=== PATIENT | female | born 1935 | race African-American/Black ===

== ENCOUNTER 2017-06-14 16:35 | Inpatient (IN) | payer BC ==
[~2017-06-14] VITALS: Ht 160 cm; Wt 101.6 kg
[~2017-06-14 16:35] MED LIST: ALLO100T PO; ALPR2TAB2 PO; AMLO10TA80 PO; AZOPT OP; BRIM10DR2 OP; BRIN8DRO OP; FURO-152; OMEP20TA15 PO; TRAV2.5D OP; VALS40TA4
[2017-06-14 17:27] LABS: BASOPHILS % 0.6 % (0.0-2.0); EOSINOPHILS % 0.8 % (0.0-5.0); HEMOGLOBIN. 9.1 g/dL (12.0-16.0); LYMPHOCYTES % 17.5 % (20.0-50.0); MEAN CORPUSCULAR HEMOGLOBIN 30.2 pg (28.0-32.0); MEAN CORPUSCULAR VOLUME 96.8 fL (81.0-99.0); MEAN PLATELET VOLUME 9.1 fl (7.4-10.4); MONOCYTES % 8.8 % (2.0-8.0); NEUTROPHILS % 72.3 % (40.0-76.0); PLATELET 153 x1000/uL (130-400); RED CELL DISTRIBUTION WIDTH 15.1 % (11.6-14.6)
[2017-06-14 17:30] LABS: INR 1.2; PROTHROMBIN TIME 12.3 sec
[2017-06-14 17:39] LABS: TROPONIN I 0.03 ng/mL (0.00-0.04)
[2017-06-14] MEDS ORDERED: CEFAZOLIN 1000MG PREMIX 50 ML IV ONE (18:15)
[2017-06-14] MEDS ORDERED: SODIUM POLYSTYRENE SULFONATE 15 G/60 ML BOT PO ONE (18:45)
[2017-06-14] MEDS ORDERED: CALCIUM CHLORIDE 1GM/10ML SYR IV ONE (18:45)
[2017-06-14] MEDS ORDERED: SODIUM CHLORIDE 0.9% 1,000 ML IV ONE (18:45)
[2017-06-14] MEDS ORDERED: DEXTROSE 50% WATER 50ML SYRINGE IV ONE (18:45)
[2017-06-14] MEDS ORDERED: INSULIN REGULAR (HUMULIN R) 300UNITS/3ML IV ONE (18:45)
[2017-06-14] MEDS ORDERED: INSULIN REGULAR (HUMULIN R) UD 100 UNITS/ML SYR IV ONE (19:00)
[2017-06-14 20:33] LABS: *AMPHETAMINES SCREEN URINE NEGATIVE (NEGATIVE); *BARBITURATES SCREEN URINE NEGATIVE (NEGATIVE); *BENZODIAZEPINES SCREEN URINE PRESUMTIVE POSITIVE (NEGATIVE); *COCAINE SCREEN URINE NEGATIVE (NEGATIVE); CANNABINOID URINE SCREEN NEGATIVE (NEGATIVE); METHADONE URINE SCREEN NEGATIVE (NEGATIVE); OPIATES URINE SCREEN NEGATIVE (NEGATIVE); PHENCYCLIDINE URINE SCREEN NEGATIVE (NEGATIVE)
[2017-06-14 22:30] VITALS: BP 192/73
[2017-06-14] MEDS ORDERED: ACETAMINOPHEN 325MG TABLET PO PRN (23:15)
[2017-06-14] MEDS ORDERED: CLONIDINE 0.1MG TABLET PO PRN (23:15)
[2017-06-14] MEDS ORDERED: LORAZEPAM 1MG TABLET PO PRN (23:15)
[2017-06-14] MEDS ORDERED: DOCUSATE SODIUM 100MG CAPSULE PO PRN (23:15)
[2017-06-14] MEDS ORDERED: APIX5TAB PO (23:27)
[2017-06-14] MEDS ORDERED: CARV12.545 PO (23:27)
[2017-06-14] MEDS ORDERED: DEXT 5%/0.45% NACL 500 ML IV NR (23:45)
[2017-06-14] MEDS: PANTOPRAZOLE 40MG DR TABLET PO SCH (23:49)
[2017-06-15] VITALS (8 sets, daily range): BP systolic 93–192; BP diastolic 45–75
[2017-06-15] MEDS: APIXABAN 5 MG TABLET PO SCH ×3 (00:05→18:41)
[2017-06-15] MEDS ORDERED: CHLO25TA27 GT (01:03)
[2017-06-15] MEDS ORDERED: DEXT 5%/0.45% NACL KCL 20MEQ/L 1,000 ML IV SCH (02:00)
[2017-06-15] MEDS: NYSTATIN/TRIAMCIN CREAM 15GM TOP SCH ×4 (02:56→18:42)
[2017-06-15] MEDS: PANTOPRAZOLE 40MG DR TABLET PO SCH ×2 (06:29→22:29)
[2017-06-15 07:36] LABS: BASOPHILS % 0.2 % (0.0-2.0); EOSINOPHILS % 0.9 % (0.0-5.0); HEMOGLOBIN. 9.7 g/dL (12.0-16.0); LYMPHOCYTES % 16.3 % (20.0-50.0); MEAN CORPUSCULAR HEMOGLOBIN 29.4 pg (28.0-32.0); MEAN CORPUSCULAR VOLUME 97.6 fL (81.0-99.0); MEAN PLATELET VOLUME 9.5 fl (7.4-10.4); MONOCYTES % 7.5 % (2.0-8.0); NEUTROPHILS % 75.1 % (40.0-76.0); PLATELET 172 x1000/uL (130-400); RED BLOOD CELL COUNT 3.28 mill/uL (4.2-5.4); RED CELL DISTRIBUTION WIDTH 15.2 % (11.6-14.6)
[2017-06-15] MEDS: CARVEDILOL 12.5MG TABLET PO SCH ×2 (08:54→21:00)
[2017-06-15] MEDS ORDERED: EDARBYCLOR PO SCH (09:00)
[2017-06-15] MEDS ORDERED: CHLORTHALIDONE 25MG TABLET GT SCH (09:00)
[2017-06-15 09:02] LABS: PHOSPHORUS 4.5 mg/dL (2.5-4.9)
[2017-06-15] MEDS ORDERED: SODIUM POLYSTYRENE SULFONATE 15 G/60 ML BOT PO NR (10:15)
[2017-06-15] MEDS: NIFEDIPINE XL 60MG TAB PO SCH (11:29)
[2017-06-15] MEDS: CITRIC ACID/SODIUM CITRATE SOLN 30ML UDC PO SCH ×3 (11:29→18:41)
[2017-06-15] MEDS ORDERED: SODIUM BICARBONATE 150 MEQ in DEXTROSE 5% WATER 1,000 ML IV SCH (12:00)
[2017-06-15 12:20] LABS: BG BASE EXCESS -16.6 mmol/L (-2.0-2.0); BG CARBOXYHEMOGLOBIN 0.1 % (0.5-1.5); BG DEOXYHEMOGLOBIN 6.3 % (0.0-5.0); BG FRACTION INSPIRED OXYGEN 21; BG METHEMOGLOBIN 0.3 % (0.0-1.5); BG OXYGEN SATURATION 93.7 % (92.0-98.5); BG OXYHEMOGLOBIN 93.3 % (94.0-97.0); BG PCO2 32.4 mmHg (35.0-45.0); BG PH 7.149 (7.350-7.450); BG SAMPLE SITE RIGHT BRACHIAL; BG TOTAL HEMOGLOBIN 10.4 g/dL (12.0-18.0); BG VENT MODE ROOM AIR
[2017-06-15 21:51] LABS: HEMATOCRIT 30.8 % (36.0-48.0); HEMOGLOBIN 9.5 g/dL (12.0-16.0); MEAN CORPUSCULAR HEMOGLOBIN 29.5 pg (28.0-32.0); MEAN CORPUSCULAR VOLUME 95.5 fL (81.0-99.0); PLATELET 175 x1000/uL (130-400); RED BLOOD CELL COUNT 3.22 mill/uL (4.2-5.4); RED CELL DISTRIBUTION WIDTH 15.2 % (11.6-14.6)
[2017-06-15] MEDS ORDERED: SODIUM CHLORIDE 0.9% 250 ML IV SCH (22:30)
[2017-06-16 04:00] VITALS: BP 164/78
[2017-06-16 08:00] VITALS: BP 110/55
[2017-06-16] MEDS: PANTOPRAZOLE 40MG DR TABLET PO SCH (08:24)
[2017-06-16] MEDS: NIFEDIPINE XL 60MG TAB PO SCH (08:24)
[2017-06-16] MEDS: APIXABAN 5 MG TABLET PO SCH (08:26)
[2017-06-16] MEDS: CARVEDILOL 12.5MG TABLET PO SCH (08:26)
[2017-06-16] MEDS: CITRIC ACID/SODIUM CITRATE SOLN 30ML UDC PO SCH ×2 (08:27→12:06)
[2017-06-16 08:37] LABS: BASOPHILS % 0.6 % (0.0-2.0); EOSINOPHILS % 1.1 % (0.0-5.0); HEMATOCRIT. 32.3 % (36.0-48.0); HEMOGLOBIN. 10.2 g/dL (12.0-16.0); LYMPHOCYTES % 10.7 % (20.0-50.0); MEAN CORPUSCULAR HEMOGLOBIN 29.9 pg (28.0-32.0); MEAN CORPUSCULAR VOLUME 94.6 fL (81.0-99.0); MONOCYTES % 7.8 % (2.0-8.0); NEUTROPHILS % 79.8 % (40.0-76.0); PLATELET 193 x1000/uL (130-400); RED BLOOD CELL COUNT 3.42 mill/uL (4.2-5.4); RED CELL DISTRIBUTION WIDTH 15.1 % (11.6-14.6)
[2017-06-16 09:14] LABS: CARBON DIOXIDE 17 mEq/L (21-32); CHLORIDE 118 mEq/L (98-107); PHOSPHORUS 3.2 mg/dL (2.5-4.9)
[2017-06-16] MEDS ORDERED: MAGNESIUM 2 G PREMIX 50 ML IV ONE (10:30)
[2017-06-16 12:00] VITALS: BP 100/56
[2017-06-16] MEDS ORDERED: SODIUM BICARBONATE 100 MEQ in DEXTROSE 5% WATER 1,000 ML IV SCH (12:00)
[2017-06-16] MEDS ORDERED: MAGNESIUM 2 G PREMIX 50 ML IV NR (12:00)
== END 2017-06-16 14:50 | disposition short-term general hospital (02) | DRG 683 ==
LOC: ER 17:08 → 8WST 17:55 → EDBEDREQ 20:20 → ENRESERV 20:24 → 8WST 21:57
PROVIDERS: ADMIT Internal Medicine Pulmonary Disease; ATTEND Internal Medicine Pulmonary Disease
DX: N17.9 Acute kidney failure, unspecified (principal); E87.2 Acidosis; M10.9 Gout, unspecified; I12.9 Hypertensive chronic kidney disease with stage 1 through stage 4 chronic kidney disease, or unspecified chronic kidney disease; R21 Rash and other nonspecific skin eruption; D63.1 Anemia in chronic kidney disease; N18.2 Chronic kidney disease, stage 2 (mild); E87.5 Hyperkalemia; E83.42 Hypomagnesemia; I48.91 Unspecified atrial fibrillation; I95.9 Hypotension, unspecified; W19.XXXA Unspecified fall, initial encounter; Y92.009 Unspecified place in unspecified non-institutional (private) residence as the place of occurrence of the external cause; Z86.718 Personal history of other venous thrombosis and embolism; Z85.038 Personal history of other malignant neoplasm of large intestine; Z82.49 Family history of ischemic heart disease and other diseases of the circulatory system; Z90.49 Acquired absence of other specified parts of digestive tract
CPT/HCPCS: 36415; 36600; 70450; 71010; 80048; 80053; 80305; 82375; 82805; 82962; 83735; 83880; 84100; 84484; 85025; 85027; 85610; 93005; 96361; 96365; 96375; 99285; C1893; J0690; J1815; J3475; J3490; J7030; J7050; J7070

== ENCOUNTER 2019-05-30 13:24 | Inpatient (IN) | payer BC ==
[2019-05-30] VITALS (17 sets, daily range): BP systolic 115–151; BP diastolic 48–67
[~2019-05-30] VITALS: Ht 162.6 cm; Wt 81.2 kg
[~2019-05-30 13:24] MED LIST changes: +APIX5TAB PO; +CARV12.545 PO
[2019-05-30] MEDS ORDERED: METHYLPREDNISOLONE SOD SUCC 125 MG/2 ML VIAL IV STA (13:32)
[2019-05-30] MEDS ORDERED: IPRATROPIUM BROMIDE (0.02%) 0.5MG/2.5ML NEB HHN STA (13:32)
[2019-05-30] MEDS ORDERED: ALBUTEROL (0.083%) 2.5MG/3ML NEB HHN STA (13:32)
[2019-05-30 14:27] LABS: BG BASE EXCESS -6.8 mmol/L (-2.0-2.0); BG BILEVEL POS AIRWAY PRESSURE 15/5; BG CARBOXYHEMOGLOBIN 0.4 % (0.5-1.5); BG DEOXYHEMOGLOBIN 2.1 % (0.0-5.0); BG FRACTION INSPIRED OXYGEN 40; BG HCO3 ACT 18.5 mmol/L (22.0-26.0); BG METHEMOGLOBIN 0.2 % (0.0-1.5); BG OXYGEN SATURATION 97.9 % (92.0-98.5); BG OXYHEMOGLOBIN 97.3 % (94.0-97.0); BG PCO2 36.2 mmHg (35.0-45.0); BG PH 7.327 (7.350-7.450); BG PO2 133.6 mmHg (75.0-100.0); BG SAMPLE SITE RIGHT BRACHIAL; BG TOTAL HEMOGLOBIN 9.7 g/dL (12.0-18.0); BG VENT MODE MASK - BIPAP; BG VENT RATE 16 set
[2019-05-30] MEDS ORDERED: FUROSEMIDE 20MG/2ML VIAL IVP ONE (14:45)
[2019-05-30] MEDS ORDERED: AZITHROMYCIN 500 MG in DEXT 5% WATER 250 ML IV STA (14:46)
[2019-05-30 14:49] LABS: BASOPHILS % 0.2 % (0.0-2.0); EOSINOPHILS % 0.6 % (0.0-5.0); HEMATOCRIT. 32.1 % (36.0-48.0); HEMOGLOBIN. 10.5 g/dL (12.0-16.0); LYMPHOCYTES % 7.2 % (20.0-50.0); MEAN CORPUSCULAR HEMOGLOBIN 29.7 pg (28.0-32.0); MEAN CORPUSCULAR VOLUME 91.1 fL (81.0-99.0); MEAN PLATELET VOLUME 9.7 fl (7.4-10.4); MONOCYTES % 3.4 % (2.0-8.0); NEUTROPHILS % 88.6 % (40.0-76.0); PLATELET 184 x1000/uL (130-400); RED BLOOD CELL COUNT 3.53 mill/uL (4.2-5.4); RED CELL DISTRIBUTION WIDTH 17.5 % (11.6-14.6)
[2019-05-30 14:54] LABS: INR 1.1; PROTHROMBIN TIME 10.9 sec (9.6-11.0)
[2019-05-30 14:55] LABS: CHLORIDE 106 mEq/L (98-107)
[2019-05-30] MEDS ORDERED: CEFTRIAXONE 1 G PREMIX 50 ML IV ONE (15:00)
[2019-05-30 15:01] LABS: PHOSPHORUS 5.1 mg/dL (2.5-4.9)
[2019-05-30] MEDS ORDERED: VANCOMYCIN 1 G PREMIX 200 ML IV SCH (17:30)
[2019-05-30] MEDS ORDERED: HYDRALAZINE 20MG/ML VIAL IV PRN (17:30)
[2019-05-30] MEDS ORDERED: CARV3.1242 MT (18:06)
[2019-05-30 19:42] LABS: CLARITY URINE TURBID (CLEAR); COLOR URINE YELLOW (YELLOW); KETONES URINE NEGATIVE (NEGATIVE); LEUKOCYTE ESTERASE URINE 3+ (NEGATIVE); NITRITE URINE NEGATIVE (NEGATIVE); OCCULT BLOOD URINE NEGATIVE (NEGATIVE); PH URINE 5.5 (4.5-8.0); PROTEIN URINE 3+ (NEGATIVE); SPECIFIC GRAVITY URINE 1.013 (1.005-1.030); UROBILINOGEN URINE 0.2 E.U./dL (0.2-1.0)
[2019-05-30] MEDS ORDERED: VANCOMYCIN 1500MG in DEXTROSE 5% WATER 250ML IV NR (20:00)
[2019-05-30] MEDS: IPRATROPIUM/ALBUTEROL 0.5-3(2.5)MG/3ML NEB HHN SCH (20:26)
[2019-05-30] MEDS: DOPAMINE 400MG/250ML PREMIX 250 ML IV PRN (21:25)
[2019-05-30 21:29] LABS: BG BASE EXCESS -6.1 mmol/L (-2.0-2.0); BG BILEVEL POS AIRWAY PRESSURE 15/5; BG CARBOXYHEMOGLOBIN 0.2 % (0.5-1.5); BG DEOXYHEMOGLOBIN 1.2 % (0.0-5.0); BG FRACTION INSPIRED OXYGEN 40; BG HCO3 ACT 19.8 mmol/L (22.0-26.0); BG METHEMOGLOBIN 0.1 % (0.0-1.5); BG OXYGEN SATURATION 98.8 % (92.0-98.5); BG OXYHEMOGLOBIN 98.5 % (94.0-97.0); BG PCO2 40.5 mmHg (35.0-45.0); BG PH 7.306 (7.350-7.450); BG PO2 168.6 mmHg (75.0-100.0); BG SAMPLE SITE LEFT RADIAL; BG TOTAL HEMOGLOBIN 10.5 g/dL (12.0-18.0); BG VENT MODE MASK - BIPAP; BG VENT RATE 16 set
[2019-05-31] VITALS (93 sets, daily range): BP systolic 106–164; BP diastolic 38–109
[2019-05-31] MEDS: IPRATROPIUM/ALBUTEROL 0.5-3(2.5)MG/3ML NEB HHN SCH ×6 (00:24→20:31)
[2019-05-31 05:16] LABS: HEMATOCRIT. 32.9 % (36.0-48.0); HEMOGLOBIN. 10.7 g/dL (12.0-16.0); MEAN CORPUSCULAR HEMOGLOBIN 29.7 pg (28.0-32.0); MEAN CORPUSCULAR VOLUME 91.6 fL (81.0-99.0); PLATELET 184 x1000/uL (130-400); RED BLOOD CELL COUNT 3.59 mill/uL (4.2-5.4); RED CELL DISTRIBUTION WIDTH 17.1 % (11.6-14.6)
[2019-05-31 05:20] LABS: CHLORIDE 104 mEq/L (98-107)
[2019-05-31 05:26] LABS: PHOSPHORUS 5.8 mg/dL (2.5-4.9)
[2019-05-31 06:20] LABS: BG BASE EXCESS -8.4 mmol/L (-2.0-2.0); BG BILEVEL POS AIRWAY PRESSURE 15/5; BG CARBOXYHEMOGLOBIN 0.7 % (0.5-1.5); BG DEOXYHEMOGLOBIN 1.4 % (0.0-5.0); BG FRACTION INSPIRED OXYGEN 40; BG HCO3 ACT 17.6 mmol/L (22.0-26.0); BG METHEMOGLOBIN 0.2 % (0.0-1.5); BG OXYGEN SATURATION 98.6 % (92.0-98.5); BG OXYHEMOGLOBIN 97.7 % (94.0-97.0); BG PH 7.284 (7.350-7.450); BG PO2 147.7 mmHg (75.0-100.0); BG SAMPLE SITE LEFT RADIAL; BG TOTAL HEMOGLOBIN 13.7 g/dL (12.0-18.0); BG VENT MODE MASK - BIPAP; BG VENT RATE 16 set
[2019-05-31 09:00] LABS: PLATELET ESTIMATE NORMAL
[2019-05-31] MEDS ORDERED: HEPARIN 1000 UNITS/ML 10ML ONE (10:44)
[2019-05-31] MEDS ORDERED: LIDOCAINE HCL 1% 20ML VIAL (Pyxis) INJ ONE (10:44)
[2019-05-31] MEDS: DOPAMINE 400MG/250ML PREMIX 250 ML IV PRN (15:11)
[2019-05-31] MEDS: CEFTRIAXONE 1 G PREMIX 50 ML IV SCH (21:30)
[2019-05-31 23:04] LABS: BG BASE EXCESS -3.5 mmol/L (-2.0-2.0); BG CARBOXYHEMOGLOBIN 0.3 % (0.5-1.5); BG DEOXYHEMOGLOBIN 0.8 % (0.0-5.0); BG FRACTION INSPIRED OXYGEN 36; BG HCO3 ACT 20.7 mmol/L (22.0-26.0); BG METHEMOGLOBIN 0.2 % (0.0-1.5); BG OXYGEN SATURATION 99.2 % (92.0-98.5); BG OXYHEMOGLOBIN 98.7 % (94.0-97.0); BG PCO2 34.4 mmHg (35.0-45.0); BG PH 7.398 (7.350-7.450); BG PO2 267.6 mmHg (75.0-100.0); BG SAMPLE SITE LEFT RADIAL; BG TOTAL HEMOGLOBIN 10.5 g/dL (12.0-18.0); BG VENT MODE NASAL CANNULA
[2019-06-01] VITALS (76 sets, daily range): BP systolic 83–164; BP diastolic 21–133
[2019-06-01] MEDS: IPRATROPIUM/ALBUTEROL 0.5-3(2.5)MG/3ML NEB HHN SCH ×6 (00:16→21:00)
[2019-06-01 05:57] LABS: CHLORIDE 102 mEq/L (98-107)
[2019-06-01 08:13] LABS: BG BASE EXCESS -4.5 mmol/L (-2.0-2.0); BG CARBOXYHEMOGLOBIN 0.2 % (0.5-1.5); BG FRACTION INSPIRED OXYGEN 28; BG HCO3 ACT 19.9 mmol/L (22.0-26.0); BG METHEMOGLOBIN 1.1 % (0.0-1.5); BG OXYHEMOGLOBIN 96.7 % (94.0-97.0); BG PCO2 34.1 mmHg (35.0-45.0); BG PH 7.384 (7.350-7.450); BG PO2 143.1 mmHg (75.0-100.0); BG SAMPLE SITE LEFT RADIAL; BG TOTAL HEMOGLOBIN 11.2 g/dL (12.0-18.0); BG VENT MODE NASAL CANNULA
[2019-06-01] MEDS: DOPAMINE 400MG/250ML PREMIX 250 ML IV PRN (09:12)
[2019-06-01] MEDS: FAMOTIDINE 20MG/2ML VIAL IV SCH (11:05)
[2019-06-01 11:40] LABS: T4 FREE 1.06 ng/dL (0.76-1.46)
[2019-06-01] MEDS: VANCOMYCIN HCL 1000 MG/20 ML ORAL PO SCH ×2 (12:27→17:41)
[2019-06-01] MEDS: ENOXAPARIN 80MG/0.8ML SYR SUBCUT SCH (12:42)
[2019-06-01] MEDS: MIDODRINE HCL 5MG TABLET PO SCH ×2 (15:05→17:37)
[2019-06-01 15:32] LABS: BASOPHILS % 0.1 % (0.0-2.0); HEMOGLOBIN. 8.7 g/dL (12.0-16.0); MEAN CORPUSCULAR HEMOGLOBIN 30.3 pg (28.0-32.0); MEAN CORPUSCULAR VOLUME 90.5 fL (81.0-99.0); MEAN PLATELET VOLUME 8.5 fl (7.4-10.4); MONOCYTES % 4.8 % (2.0-8.0); NEUTROPHILS % 87.1 % (40.0-76.0); PLATELET 110 x1000/uL (130-400); RED BLOOD CELL COUNT 2.88 mill/uL (4.2-5.4); RED CELL DISTRIBUTION WIDTH 16.8 % (11.6-14.6)
[2019-06-01] MEDS: CEFTRIAXONE 1 G PREMIX 50 ML IV SCH (17:37)
[2019-06-02] VITALS (35 sets, daily range): BP systolic 108–167; BP diastolic 40–78
[2019-06-02] MEDS: VANCOMYCIN HCL 1000 MG/20 ML ORAL PO SCH ×7 (00:08→23:51)
[2019-06-02] MEDS: DOPAMINE 400MG/250ML PREMIX 250 ML IV PRN (03:02)
[2019-06-02] MEDS: IPRATROPIUM/ALBUTEROL 0.5-3(2.5)MG/3ML NEB HHN SCH ×6 (04:55→20:36)
[2019-06-02 06:52] LABS: BASOPHILS % 0.1 % (0.0-2.0); EOSINOPHILS % 0.1 % (0.0-5.0); HEMOGLOBIN. 8.9 g/dL (12.0-16.0); MEAN CORPUSCULAR HEMOGLOBIN 29.7 pg (28.0-32.0); MEAN CORPUSCULAR VOLUME 90.1 fL (81.0-99.0); MEAN PLATELET VOLUME 8.8 fl (7.4-10.4); MONOCYTES % 4.7 % (2.0-8.0); NEUTROPHILS % 83.1 % (40.0-76.0); PLATELET 134 x1000/uL (130-400); RED BLOOD CELL COUNT 2.99 mill/uL (4.2-5.4); RED CELL DISTRIBUTION WIDTH 16.6 % (11.6-14.6)
[2019-06-02 07:04] LABS: PHOSPHORUS 3.8 mg/dL (2.5-4.9)
[2019-06-02] MEDS: MIDODRINE HCL 5MG TABLET PO SCH ×3 (08:26→17:00)
[2019-06-02] MEDS: FAMOTIDINE 20MG/2ML VIAL IV SCH (08:26)
[2019-06-02] MEDS: ENOXAPARIN 80MG/0.8ML SYR SUBCUT SCH (11:34)
[2019-06-02] MEDS: CEFTRIAXONE 1 G PREMIX 50 ML IV SCH (17:35)
[2019-06-02] MEDS: THEOPHYLLINE ANHYDROUS 80 MG/15 ML 120ML PO SCH (22:00)
[2019-06-03] VITALS (28 sets, daily range): BP systolic 146–176; BP diastolic 53–109
[2019-06-03] MEDS: IPRATROPIUM/ALBUTEROL 0.5-3(2.5)MG/3ML NEB HHN SCH ×5 (00:11→16:38)
[2019-06-03] MEDS: VANCOMYCIN HCL 1000 MG/20 ML ORAL PO SCH ×2 (06:00→11:17)
[2019-06-03] MEDS: THEOPHYLLINE ANHYDROUS 80 MG/15 ML 120ML PO SCH ×2 (06:00→13:37)
[2019-06-03 06:37] LABS: BASOPHILS % 0.1 % (0.0-2.0); EOSINOPHILS % 0.9 % (0.0-5.0); HEMATOCRIT. 27.1 % (36.0-48.0); HEMOGLOBIN. 8.9 g/dL (12.0-16.0); LYMPHOCYTES % 12.7 % (20.0-50.0); MEAN CORPUSCULAR HEMOGLOBIN 29.8 pg (28.0-32.0); MEAN CORPUSCULAR VOLUME 91.1 fL (81.0-99.0); MEAN PLATELET VOLUME 8.8 fl (7.4-10.4); MONOCYTES % 5.8 % (2.0-8.0); NEUTROPHILS % 80.5 % (40.0-76.0); PLATELET 78 x1000/uL (130-400); RED BLOOD CELL COUNT 2.97 mill/uL (4.2-5.4); RED CELL DISTRIBUTION WIDTH 17.3 % (11.6-14.6)
[2019-06-03 06:59] LABS: PHOSPHORUS 2.7 mg/dL (2.5-4.9)
[2019-06-03] MEDS ORDERED: MIDODRINE HCL 5MG TABLET PO SCH (09:00)
[2019-06-03] MEDS: FAMOTIDINE 20MG/2ML VIAL IV SCH (09:02)
[2019-06-03] MEDS ORDERED: HYDRALAZINE 20MG/ML VIAL IV PRN (09:45)
[2019-06-03] MEDS ORDERED: AMLODIPINE 5MG TABLET PO SCH (10:45)
[2019-06-03] MEDS ORDERED: LEVOFLOXACIN 500MG PREMIX 100 ML IV SCH (11:00)
[2019-06-03] MEDS ORDERED: HYDRALAZINE HCL 25MG TABLET PO SCH (14:00)
[2019-06-03] MEDS ORDERED: IPRATROPIUM/ALBUTEROL 0.5-3(2.5)MG/3ML NEB HHN PRN (17:15)
[2019-06-05] MEDS ORDERED: LEVOFLOXACIN 250MG PREMIX 50 ML IV SCH (11:00)
== END 2019-06-03 18:10 | disposition short-term general hospital (02) | DRG 682 ==
LOC: ER 13:31 → CVICU 14:47 → EDBEDREQ 14:54 → ENRESERV 15:37 → 8WST 06-03 12:35
PROVIDERS: ADMIT Internal Medicine Critical Care Medicine; ATTEND Internal Medicine Critical Care Medicine
PROC: 5A1D70Z Performance of Urinary Filtration, Intermittent, Less than 6 Hours Per Day (ICD-10-PCS; 2019-05-30)
PROC: 5A09457 Assistance with Respiratory Ventilation, 24-96 Consecutive Hours, Continuous Positive Airway Pressure (ICD-10-PCS; 2019-05-30)
PROC: 02HV33Z Insertion of Infusion Device into Superior Vena Cava, Percutaneous Approach (ICD-10-PCS; 2019-05-31)
PROC: B548ZZA Ultrasonography of Superior Vena Cava, Guidance (ICD-10-PCS; 2019-05-31)
PROC: 5A1D70Z Performance of Urinary Filtration, Intermittent, Less than 6 Hours Per Day (ICD-10-PCS; principal; 2019-06-02)
DX: N17.9 Acute kidney failure, unspecified (principal); J96.01 Acute respiratory failure with hypoxia; R57.9 Shock, unspecified; I43 Cardiomyopathy in diseases classified elsewhere; G93.40 Encephalopathy, unspecified; N39.0 Urinary tract infection, site not specified; E87.2 Acidosis; I13.2 Hypertensive heart and chronic kidney disease with heart failure and with stage 5 chronic kidney disease, or end stage renal disease; N18.6 End stage renal disease; I50.9 Heart failure, unspecified; I48.91 Unspecified atrial fibrillation; F03.90 Unspecified dementia, unspecified severity, without behavioral disturbance, psychotic disturbance, mood disturbance, and anxiety; H54.7 Unspecified visual loss; D64.9 Anemia, unspecified; E66.01 Morbid (severe) obesity due to excess calories; D69.6 Thrombocytopenia, unspecified; E78.5 Hyperlipidemia, unspecified; E87.5 Hyperkalemia; H40.9 Unspecified glaucoma; I27.20 Pulmonary hypertension, unspecified; Z96.652 Presence of left artificial knee joint; K80.20 Calculus of gallbladder without cholecystitis without obstruction; M10.9 Gout, unspecified; Z96.1 Presence of intraocular lens; F09 Unspecified mental disorder due to known physiological condition; M13.0 Polyarthritis, unspecified; N25.89 Other disorders resulting from impaired renal tubular function; Z85.038 Personal history of other malignant neoplasm of large intestine; Z79.01 Long term (current) use of anticoagulants; Z86.718 Personal history of other venous thrombosis and embolism; Z90.49 Acquired absence of other specified parts of digestive tract; Z90.710 Acquired absence of both cervix and uterus; Z91.19 Patient's noncompliance with other medical treatment and regimen; Z99.2 Dependence on renal dialysis; Z79.899 Other long term (current) drug therapy; Z98.42 Cataract extraction status, left eye; Z98.41 Cataract extraction status, right eye
CPT/HCPCS: 36415; 36600; 71045; 76937; 80048; 82375; 82805; 83605; 83735; 83880; 84100; 84145; 84439; 84443; 84481; 84484; 87077; 87186; 92610; 93005; 93306; 93970; 94640; 94644; 94660; 96374; 99285; A6261; C1752; J0360; J0456; J0696; J1265; J1644; J1650; J1940; J1956; J2930; J3370; J3490; J7040; J7050; J7060; J7611; J7620